=== PATIENT | male | born 1980 | race Two or more races ===

== ENCOUNTER 2017-08-10 10:28 | Outpatient (CLI) | payer OTHER | END 2017-08-10 23:59 | disposition home or self-care (01) | LOC: WOU 10:28 | PROVIDERS: ATTEND Podiatrist Foot & Ankle Surgery | DX: M79.671 Pain in right foot (principal); R60.0 Localized edema; M25.374 Other instability, right foot; M20.40 Other hammer toe(s) (acquired), unspecified foot | CPT/HCPCS: G0463 ==